=== PATIENT | female | born 1965 | race Caucasian/White ===

== ENCOUNTER 2022-03-17 11:22 | Emergency (ER) | payer OTHER ==
[2022-03-17] MEDS ORDERED: predniSONE 20 MG TABLET (UD) PO ONE (11:38)
[2022-03-17 11:39] VITALS: BP 110/70; PULSE 95; RESP 20; TEMP 99.1; BMI 34.5
[2022-03-17] MEDS ORDERED: ALBUTEROL SO4 2.5/IPRATROPIUM 0.5 INH SOL 3 ML VIAL.NEB. NEB ONE (11:40)
[2022-03-17] MEDS ORDERED: predniSONE 20 MG TABLET (UD) ONE (11:40)
[2022-03-17] MEDS: ALBUTEROL SO4 2.5/IPRATROPIUM 0.5 INH SOL 3 ML VIAL.NEB. NEB SCH ×3 (11:45→12:20)
== END 2022-03-17 13:03 | disposition home or self-care (01) ==
LOC: FER 11:22
PROC: 3E0F7GC Introduction of Other Therapeutic Substance into Respiratory Tract, Via Natural or Artificial Opening (ICD-10-PCS; principal; 2022-03-17)
DX: J45.21 Mild intermittent asthma with (acute) exacerbation (principal)
CPT/HCPCS: 99283-25